=== PATIENT | male | born 1995 | race African-American/Black ===

== ENCOUNTER 2018-01-29 20:26 | Emergency (ER) | payer OTHER, MEDICAID ==
[~2018-01-29] VITALS: Ht 188 cm; Wt 68.0 kg
[2018-01-29] MEDS ORDERED: KETOROLAC 30MG/ML VIAL IM ONE (21:45)
[2018-01-29] MEDS ORDERED: LIDOCAINE HCL 1% 20ML VIAL (Pyxis) INJ MC ONE (22:15)
[2018-01-29] MEDS ORDERED: TETANUS, DIPHTHERIA, PERTUSSIS VAC/PF 0.5ML (>7YR OLD) IM ONE (22:15)
[2018-01-29] MEDS ORDERED: BACITRACIN ZINC OINT UDPKT TOP ONE (22:15)
[2018-01-29] MEDS ORDERED: LIDOCAINE HCL/PF 1% 10 MG/ML 5ML VIAL IJ NR (23:00)
[2018-01-29] MEDS ORDERED: ACETAMINOPHEN 325MG TABLET PO ONE (23:15)
[2018-01-29 23:20] VITALS: BP 128/70
== END 2018-01-29 23:48 | disposition home or self-care (01) ==
LOC: ER 21:10
DX: S01.511A Laceration without foreign body of lip, initial encounter (principal); F12.10 Cannabis abuse, uncomplicated; Y08.89XA Assault by other specified means, initial encounter; Y93.89 Activity, other specified; Y92.89 Other specified places as the place of occurrence of the external cause; Y99.8 Other external cause status
CPT/HCPCS: 12011; 96372; 99283; J1885; J3490; Z7610; 90715

== ENCOUNTER 2024-03-24 08:40 | Emergency (ER) | payer OTHER, MEDICAID ==
[~2024-03-24] VITALS: Ht 185.4 cm; Wt 91.0 kg
[2024-03-24 08:56] VITALS: O2SAT 99
[2024-03-24] MEDS: DEXAMETHASONE 4MG/ML 1ML VIAL IM ONE (09:15)
[2024-03-24] MEDS: DIPHENHYDRAMINE 50MG/ML VIAL IM ONE (09:15)
[2024-03-24] MEDS ORDERED: HYDR30CR80 TP (09:22)
[2024-03-24] MEDS ORDERED: MED4 MT (09:22)
[2024-03-24] MEDS ORDERED: DIPH25TA24 MT (09:22)
[2024-03-24 10:14] VITALS: BP 124/78; PULSE 80; RESP 18; TEMP 97.7
== END 2024-03-24 10:30 | disposition home or self-care (01) ==
LOC: ER 08:44
DX: K64.9 Unspecified hemorrhoids (principal); L50.9 Urticaria, unspecified; F12.10 Cannabis abuse, uncomplicated; Z79.899 Other long term (current) drug therapy
CPT/HCPCS: 99284; 96372; J1100; J1200

== ENCOUNTER 2024-04-17 16:56 | Emergency (ER) | payer MEDICAID ==
[~2024-04-17] VITALS: Ht 188 cm; Wt 75.0 kg
[~2024-04-17 16:56] MED LIST: DIPH25TA24 MT; HYDR30CR80 TP; MED4 MT
[2024-04-17 17:07] VITALS: O2SAT 98
[2024-04-17] MEDS ORDERED: PERM60CR4 TP (17:54)
[2024-04-17 19:02] VITALS: BP 125/69; PULSE 73; RESP 18; TEMP 98.3; O2SAT 100
[2024-04-17] MEDS: DIPHENHYDRAMINE 25MG CAPSULE PO ONE (19:02)
== END 2024-04-17 19:07 | disposition home or self-care (01) ==
LOC: ER 16:56
DX: L50.9 Urticaria, unspecified (principal); F12.90 Cannabis use, unspecified, uncomplicated
CPT/HCPCS: 99282; Q0163